=== PATIENT | male | born 1960 | race Caucasian/White ===

== ENCOUNTER 2018-12-13 11:22 | Inpatient (IN) | payer OTHER ==
[~2018-12-13] VITALS: Ht 185.4 cm; Wt 61.7 kg
[2018-12-13] MEDS ORDERED: IOHEXOL 350 MG/ML 100ML IJ ONE (12:15)
[2018-12-13 12:55] LABS: Basophils # (auto) 0 uL; Basophils % (auto) 0.4 % (0.0-2.0); Eosinophils # (auto) 0.2 uL; Eosinophils % (auto) 2.1 % (0.0-7.0); Hematocrit 45.3 % (41.0-53.0); Hemoglobin 14.9 g/dL (13.5-17.5); Lymphocytes # (auto) 1.7 uL; Lymphocytes % (auto) 17.8 % (10.0-50.0); Mean Corpuscular Hemoglobin 30.3 pg (28.0-32.0); Mean Corpuscular Hgb Conc. 32.9 g/dL (32.0-36.0); Mean Corpuscular Volume 92.4 fL (80.0-100.0); Monocytes % (auto) 10.8 % (0.0-12.0); Neutrophils # (auto) 6.5 uL; Neutrophils % (auto) 68.9 % (37.0-80.0); Nucleated Red Blood Cells % 0.1 %; Platelet Count (auto) 390 10^3/uL (140-450); Red Cell Distribution Width 15.2 % (11.8-14.3); White Blood Cell 9.4 10^3/uL (4.4-10.8)
[2018-12-13 13:06] LABS: Albumin 3.1 g/dL (3.4-5.0); BUN/Creatinine Ratio 23.1; Calcium 8.4 mg/dL (8.5-10.1); Potassium 4.7 mmol/L (3.5-5.1)
[2018-12-13 13:08] LABS: Bilirubin, Total 1.6 mg/dL (0.2-1.0); Total Protein 6.8 g/dL (6.4-8.2)
[2018-12-13] MEDS ORDERED: LORazepam 2MG/ML-1ML VIAL IV ONE (13:15)
[2018-12-13] MEDS ORDERED: FUROSEMIDE 40 MG/4 ML VIAL IV ONE (14:15)
[2018-12-13] MEDS ORDERED: ALBUTEROL SULF 2.5 MG/0.5ML(0.5%) NEB SOLN NEB PRN (14:45)
[2018-12-13] MEDS ORDERED: PROMETHAZINE HCL 25 MG/ML 1ML IV PRN (14:45)
[2018-12-13] MEDS ORDERED: LACTULOSE 20Gm/30ML SOLN PO PRN ×2 (14:45)
[2018-12-13] MEDS ORDERED: NITROGLYCERIN 0.4 MG SL TAB SL PRN (14:45)
[2018-12-13] MEDS ORDERED: MORPHINE SULFATE 4 MG/ML SYR/VIAL IV PRN (14:45)
--- NOTE | 2018-12-13 19:11 | NUR ---
PT CURRENTLY ON 2 L/M NC: HR 99, RR 18, SPO2 96% WITH CLEAR/DIM BS. PT SHOWS NO S/S OF ANY RESPIRATORY DISTRESS. INFORMED PT IF SOB TO CONTACT RESPIRATORY FOR BREATHING TX. WILL CONTINUE TO MONITOR.
[2018-12-13] MEDS: SODIUM CHLOR 0.9% PF (SALINE LOCK) 10ML VIAL/SYR IV SCH (21:56)
[2018-12-13] MEDS ORDERED: CARVEDILOL 3.125 MG TAB PO SCH (22:00)
[2018-12-13] MEDS ORDERED: FUROSEMIDE 40 MG/4 ML VIAL IV SCH (22:00)
[2018-12-13] MEDS ORDERED: ENALAPRIL MALEATE 2.5 MG TAB PO SCH ×2 (22:00)
[2018-12-13 22:32] VITALS: BP 135/99
[2018-12-14 03:37] LABS: Basophils # (auto) 0.1 uL; Basophils % (auto) 0.7 % (0.0-2.0); Eosinophils # (auto) 0.2 uL; Eosinophils % (auto) 2.7 % (0.0-7.0); Hemoglobin 14.7 g/dL (13.5-17.5); Lymphocytes # (auto) 1.8 uL; Lymphocytes % (auto) 21.2 % (10.0-50.0); Mean Corpuscular Hemoglobin 30.7 pg (28.0-32.0); Mean Corpuscular Hgb Conc. 33.4 g/dL (32.0-36.0); Mean Corpuscular Volume 92.1 fL (80.0-100.0); Neutrophils # (auto) 5.4 uL; Neutrophils % (auto) 63.4 % (37.0-80.0); Nucleated Red Blood Cells % 0.1 %; Platelet Count (auto) 355 10^3/uL (140-450); Red Blood Cells 4.77 10^6/uL (4.5-5.90); Red Cell Distribution Width 15.1 % (11.8-14.3); White Blood Cell 8.6 10^3/uL (4.4-10.8)
[2018-12-14 03:56] LABS: Albumin 2.9 g/dL (3.4-5.0); Calcium 8.6 mg/dL (8.5-10.1); Potassium 4.9 mmol/L (3.5-5.1)
[2018-12-14 03:59] LABS: Bilirubin, Total 1.4 mg/dL (0.2-1.0); Total Protein 6.1 g/dL (6.4-8.2)
[2018-12-14] MEDS: SODIUM CHLOR 0.9% PF (SALINE LOCK) 10ML VIAL/SYR IV SCH ×3 (06:07→22:58)
[2018-12-14 08:54] LABS: Alcohol, Urine < 3.0 mg/dL (0-5); Amphetamine Screen, Urine NEGATIVE (NEGATIVE); Barbiturate Scree,Urine NEGATIVE (NEGATIVE); Benzodiazephine Screen, Urine NEGATIVE (NEGATIVE); Cannabinoid Screen, Urine NEGATIVE (NEGATIVE); Cocaine Screen, Urine NEGATIVE (NEGATIVE); Opiate Scree,Urine NEGATIVE (NEGATIVE); Phencyclidine Screen, Urine NEGATIVE (NEGATIVE)
[2018-12-14] MEDS ORDERED: ENALAPRIL MALEATE 2.5 MG TAB PO SCH (10:00)
[2018-12-14] MEDS ORDERED: LISINOPRIL 20 MG TAB PO SCH (10:00)
[2018-12-14] MEDS ORDERED: CARVEDILOL 3.125 MG TAB PO ONE (10:45)
[2018-12-14] MEDS: PANTOPRAZOLE 40 MG TAB PO SCH (11:49)
[2018-12-14] MEDS: POTASSIUM CHL 20 Meq TABLET PO SCH (11:49)
[2018-12-14] MEDS: LEVOFLOXACIN 500MG 100 ML IV SCH (11:49)
[2018-12-14] MEDS: ASPirin 81 mg TAB PO SCH (11:49)
[2018-12-14] MEDS: NITROGLYCERIN 0.2MG/HR TOPICAL PATCH TD SCH (11:50)
[2018-12-14] MEDS: ENOXAPARIN SOD 40 MG/0.4 ML SYRINGE SC SCH (11:51)
[2018-12-14] MEDS: LORazepam 0.5 MG TAB PO PRN ×2 (13:34→23:00)
[2018-12-14] MEDS ORDERED: chlordiazePOXIDE HCL 25 MG CAP PO PRN (15:45)
[2018-12-14] MEDS ORDERED: THIAMINE HCL 100 MG TAB PO ONE (15:45)
[2018-12-14] MEDS: chlordiazePOXIDE HCL 5 MG CAP PO SCH ×2 (18:00→22:59)
[2018-12-14] MEDS: FUROSEMIDE 40 MG/4 ML VIAL IV SCH (18:09)
--- NOTE | 2018-12-14 19:04 | NUR ---
PT SEEN SLEEPING IN BED ON 2L NC, SPO2 96%, RR 18, BS CLEAR, NO RESP DISTRESS NOTED. PRN NEB TX NOT INDICATED AT THIS TIME.
[2018-12-14 22:10] VITALS: BP 129/77
--- NOTE | 2018-12-14 22:10 | NUR ---
[facility] to [facility] to [facility] via gurney on campus monitor, and portable 02. Patient transferred to bed, connected to unit monitoring and oxygen, and weighed by bed scale. Patient oriented to Johana miranda RN, unit, room, bed, and unit policies regarding patient care and visiting hours. All questions and concerns addressed, patient verbalized understanding. NOTE: ALERT AND ORIENTED X4. NO SOB, DISTRESS OR PAIN NOTED. 2L N/C. CLEAR RIGHT AC 20G SL VS STABLE. NO OPEN WOUND
[2018-12-14] MEDS: SACUBITRIL-VALSARTAN 24mg/26mg TAB PO SCH (22:59)
[2018-12-14] MEDS: CARVEDILOL 3.125 MG TAB PO SCH (22:59)
--- NOTE | 2018-12-14 23:00 | NUR ---
LEFT THE BEDSIDE FOR THE NIGHT
[2018-12-15] VITALS: BP 113/79
[2018-12-15] MEDS: TEMAZEPAM 15 MG CAP PO PRN ×2 (01:00→22:13)
--- NOTE | 2018-12-15 03:00 | NUR ---
ROUNDS PATIENT QUIETLY LAYING IN BED SLEEPING. NO SOB, DISTRESS OR PAIN NOTED. VS STABLE. WILL CONTINUE TO CLOSELY MONITOR.
[2018-12-15 04:00] VITALS: BP 118/84
[2018-12-15] MEDS: chlordiazePOXIDE HCL 5 MG CAP PO SCH ×2 (05:37→12:00)
[2018-12-15] MEDS: SODIUM CHLOR 0.9% PF (SALINE LOCK) 10ML VIAL/SYR IV SCH ×3 (05:38→22:07)
[2018-12-15] MEDS: FUROSEMIDE 40 MG/4 ML VIAL IV SCH ×2 (06:33→19:43)
--- NOTE | 2018-12-15 06:45 | NUR ---
END OF SHIFT PATIENT IS QUIETLY LAYING IN BED SLEEPING. NO SOB, DISTRESS OR PAIN NOTED. ON 4L N/C. WILL GIVE REPORT AND ENDORSE CARE TO THE DAY SHIFT RN.
--- NOTE | 2018-12-15 07:30 | NUR ---
REPORT RECEIVED FROM MELIA RNNANDO. PT RESTING IN BED WITH EYES CLOSED AND VSS. NO DISTRESS NOTED. CONTINUE TO MONITOR.
[2018-12-15 08:00] VITALS: BP 119/82
--- NOTE | 2018-12-15 08:10 | NUR ---
ASSESSMENT PT AWAKE AND A/O X4. ABLE TO FOLLOW SIMPLE COMMANDS AND MOVES SELF IN BED. LUNGS CLEAR AND O2 AT 4 L/M VIA NC WITH O2 SAT OF 98%. TELE SR 95 WITH PVC, AND ELEVATED ST IN LEAD V. PALPABLE PULSES TO ALL EXTREMITIES. NO EDEMA NOTED. ABD SOFT WITH + BOWEL SOUNDS. LAST BM WAS 12/14. USED URINAL TO VOID QS CLEAR YELLOW URINE. DENIES ANY PAIN OR SOB. SALINE LOCK TO THE RAC, #20, SITE BENIGN. CONTINUE TO MONITOR,
[2018-12-15 08:29] LABS: Albumin 2.5 g/dL (3.4-5.0); Calcium 8.1 mg/dL (8.5-10.1); Potassium 4.3 mmol/L (3.5-5.1)
--- NOTE | 2018-12-15 08:30 | NUR ---
CLARIFIED WITH DR LOPEZ , BY PHONE, THAT PT HAVING LHC AND [facility] ON SUNDAY. ORDER FOR NPO SHOULD BE FOR NPO AFTER MIDNIGHT SUNDAY NIGHT. BREAKFAST TRAY ORDERED. PT NOTIFIED.
[2018-12-15 08:36] LABS: BUN/Creatinine Ratio 30.3; Bilirubin, Total 0.9 mg/dL (0.2-1.0); Total Protein 5.9 g/dL (6.4-8.2)
--- NOTE | 2018-12-15 10:00 | NUR ---
RT NOTE: WENT TO PTS ROOM TO ASSESS FOR PRN BREATHING TX, PT SLEEPING, PT IS ON 3L NC, SPO2 98% HR 100, NO S/S OF SOB. WILL CONTINUE TO MONITOR PT.
[2018-12-15] MEDS: LEVOFLOXACIN 500MG 100 ML IV SCH (10:51)
[2018-12-15] MEDS: ASPirin 81 mg TAB PO SCH (10:51)
[2018-12-15] MEDS: ENOXAPARIN SOD 40 MG/0.4 ML SYRINGE SC SCH (10:51)
[2018-12-15] MEDS: POTASSIUM CHL 20 Meq TABLET PO SCH (10:51)
[2018-12-15] MEDS: PANTOPRAZOLE 40 MG TAB PO SCH (10:52)
[2018-12-15] MEDS: CARVEDILOL 3.125 MG TAB PO SCH ×2 (11:18→22:11)
[2018-12-15] MEDS: NITROGLYCERIN 0.2MG/HR TOPICAL PATCH TD SCH (11:18)
[2018-12-15] MEDS: SACUBITRIL-VALSARTAN 24mg/26mg TAB PO SCH ×2 (11:18→22:10)
[2018-12-15] MEDS: THIAMINE HCL 100 MG TAB PO SCH (11:20)
[2018-12-15 12:30] VITALS: BP 107/69
--- NOTE | 2018-12-15 12:30 | NUR ---
PT RESTING COMFORTABLY, SERVED HIM HIS LUNCH.
--- NOTE | 2018-12-15 12:50 | NUR ---
MD VISIT PT SEEN AND EXAMINED BY DR AGUILAR. PT HAD ANOTHER MUSCLE CRAMP IN HIS LEGS. DR AGUILAR ORDERED MAG SULFATE 1 GM IVPB AND TO GIVE PREVIOUSLY ORDERED DOSE OF PO ATIVAN FOR ANXIETY. PT ANXIOUS ABOUT TOMORROWS LEFT AND RIGHT HEART CATH. MEDS ORDERED AND ADMINISTERED.
[2018-12-15] MEDS ORDERED: MAGNESIUM SULFATE 1GM/100ML 100 ML IV ONE ×2 (12:57→13:00)
[2018-12-15] MEDS: LORazepam 0.5 MG TAB PO PRN (13:10)
--- NOTE | 2018-12-15 13:30 | NUR ---
PT SLEEPING WITH RESPIRATIONS EVEN AND UNLABORED. VSS. AT THE BEDSIDE.
--- NOTE | 2018-12-15 15:45 | NUR ---
V TACH/MD PT WITH 3 BEATS OF V TACH, PT SLEEPING AND VSS. PAGED AND SPOKE WITH DR LOPEZ NOTIFYING HIM OF THIS. ORDER RECEIVED FOR MAGNESIUM 400 MG PO BID.
[2018-12-15 17:00] VITALS: BP 107/70
--- NOTE | 2018-12-15 17:32 | NUR ---
V TACH PT WITH 4 BEATS OF V TACH. PT ASLEEP WITH VSS AND BP OF 110/71. CALLED AND NOTIFIED DR AGUILAR. ORDER RECEIVED TO GET A STAT POTASSIUM LEVEL. ORDER PLACED AND LAB CALLED. AT BEDSIDE AND MADE AWARE.
--- NOTE | 2018-12-15 17:49 | NUR ---
ANOTHER 4 BEATS OF V TACH. HOLDING 1800 DOSE OF LASIX UNTIL K LEVEL RESULTED.
--- NOTE | 2018-12-15 18:32 | NUR ---
STAT K LEVEL ALREADY DRAWN AND WAITING FOR RESULT. HOLDING LASIX DOSE UNTIL K LEVEL BACK. CONTINUE TO MONITOR. PT AWAKE , EITH NO PAIN, AND SERVED DINNER.
--- NOTE | 2018-12-15 18:59 | NUR ---
Respiratory note: PT ASSESSED FOR PRN MED NEB TX. NO RESPIRATORY DISTRESS NOTED. HR 108 RR 16 SP02 97% ON 2 L, BS CLEAR/DIMINISHED. PT AWARE TO HAVE RN PAGE RT IF MED NEB TX IS NEEDED, WILL CONTINUE TO MONITOR.
--- NOTE | 2018-12-15 19:30 | NUR ---
REPORT GIVEN TO KRISTEN CÁRDENAS RN. PT WITH Linnea TELLORAW AND IS 4.6. ADMINISTERED LASIX 40 MG IV.
[2018-12-15 20:00] VITALS: BP 124/63
--- NOTE | 2018-12-15 20:00 | NUR ---
Opening Shift Note Assumed care of patient, awake and alert, OOB to BSC by self for elimination and back, stable gait, no lightheadedness, no incident. Breathing even and nonlabored on O2NC 2 LPM, No S/S of distress/SOB. Denies pain and N/V. Saline lock 20 G at right AC, CDI site, flushed well, reported slightly pain when flush, will continue monitoring. Voided to urinal x3, clear pale yellowish. Bed in low position, call light within reach, fall and safety precaution in place, all alarms are audible. Instructed on POC and to call for assist PRN, will continue to monitor for changes Q1hr and PRN.
--- NOTE | 2018-12-15 20:10 | NUR ---
Consent obtained Pt's at bedside. Discussed POC and procedure with Pt and Pt's ; Angelita. Pt stated that Dr. Calderon and Pt already discussed about the procedure tomorrow. Pt still feel anxious about the procedure. Education given regarding Pre-op, Intra-op and Post-op of Heart cath. All questions and concerns answered to Pt and the . Instructed POC for the night about procedure preparing, Pt acknowledged. Consents obtained at this time. Pt's yellow colored ring removed and gave to the .
--- NOTE | 2018-12-15 21:00 | NUR ---
Urination Since Lasix given as order, Pt voided multiple times, clear pale yellowish urine, total now 1170ml. Pt wiped clean by self, wet wipes and trash bag prepared at bedside. Continue care.
--- NOTE | 2018-12-15 22:00 | NUR ---
Elimination Pt OOB to BSC for Elimination. Pt passed a large amount of semi-soft yellowish stool. Pt wiped clean by self, Pt back to bed without incident. Pt tolerated well, v/s stable, no ectopies.
[2018-12-15] MEDS: MAGNESIUM OXIDE 400 MG TAB PO SCH (22:11)
--- NOTE | 2018-12-15 23:10 | NUR ---
Muscle Cramping Pt moaning, stated Pt having muscle cramping on posterior of right thigh, Pt have to get OOB/ have short steps and stretching the muscle by bedside in order to ease the pain and cramping. Assisted Pt with stretching and safety precaution. After 10mins of stretching, Pt feel better and able to lie on the bed. Continue care and monitoring.
[2018-12-16] VITALS: BP 139/58
--- NOTE | 2018-12-16 01:00 | NUR ---
Condition update Pt v/s, EKG and condition stable, able to sleep. Continue monitoring and care.
[2018-12-16 03:29] LABS: Urine Bacteria NONE SEEN /hpf (None Seen); Urine Blood Negative /uL (Negative); Urine Mucus FEW (None Seen); Urine Specific Gravity 1.013 (1.001-1.035); Urine WBC <1 /hpf (0 - 3)
--- NOTE | 2018-12-16 04:30 | NUR ---
IV insertion IV access obtained, via clean sterile technique by inserting 20 gauge catheter at left after 1 attempt for left and right heart cath procedure. IV secured properly. No trauma to site. Patient tolerated well. 04.45am IV at left FA is leaking a small amount of blood, D/S and covered with new Tegaderm. Continue care.
--- NOTE | 2018-12-16 05:00 | NUR ---
Patient bathe/linen change Patient given complete bath with CHG wipes. Skin integrity assessed for any changes, skin intact. Complete linens changed. Mouth care done, partial upper denture removed and cleaned, put in the denture cup at bedside. Patient repositioned for comfort.
[2018-12-16 05:31] LABS: Basophils # (auto) 0.1 uL; Basophils % (auto) 0.5 % (0.0-2.0); Eosinophils # (auto) 0.4 uL; Eosinophils % (auto) 3.8 % (0.0-7.0); Hematocrit 46.5 % (41.0-53.0); Hemoglobin 15.6 g/dL (13.5-17.5); Lymphocytes # (auto) 1.9 uL; Lymphocytes % (auto) 18.3 % (10.0-50.0); Mean Corpuscular Hemoglobin 30.6 pg (28.0-32.0); Mean Corpuscular Hgb Conc. 33.6 g/dL (32.0-36.0); Mean Corpuscular Volume 91.1 fL (80.0-100.0); Monocytes # (auto) 1.3 uL; Monocytes % (auto) 13.2 % (0.0-12.0); Neutrophils # (auto) 6.5 uL; Neutrophils % (auto) 64.2 % (37.0-80.0); Nucleated Red Blood Cells % 0.1 %; Platelet Count (auto) 339 10^3/uL (140-450); Red Cell Distribution Width 14.4 % (11.8-14.3); White Blood Cell 10.1 10^3/uL (4.4-10.8)
[2018-12-16 05:49] LABS: INR 1.19 (0.9-1.15); Partial Thromboplastin Time 25.9 sec (23.78-33.04); Prothrombin Time 12.6 sec (9.27-12.13)
[2018-12-16 05:51] LABS: Potassium 4.1 mmol/L (3.5-5.1)
[2018-12-16 06:00] LABS: Albumin 2.5 g/dL (3.4-5.0); BUN/Creatinine Ratio 23.6; Calcium 8.1 mg/dL (8.5-10.1); Total Protein 6.2 g/dL (6.4-8.2)
[2018-12-16] MEDS: FUROSEMIDE 40 MG/4 ML VIAL IV SCH (06:51)
[2018-12-16] MEDS: SODIUM CHLOR 0.9% PF (SALINE LOCK) 10ML VIAL/SYR IV SCH ×3 (06:51→22:13)
[2018-12-16 08:00] VITALS: BP 138/83
--- NOTE | 2018-12-16 09:22 | NUR ---
FAMILY AT BEDSIDE
[2018-12-16] MEDS: ENOXAPARIN SOD 40 MG/0.4 ML SYRINGE SC SCH (10:00)
[2018-12-16 10:09] LABS: Free T3 2.54 pg/mL (2.3-4.2); Free T4 (Free Thyroxine) 1.26 ng/dL (0.89-1.76)
[2018-12-16] MEDS: LEVOFLOXACIN 500MG 100 ML IV SCH (10:12)
[2018-12-16] MEDS: NITROGLYCERIN 0.2MG/HR TOPICAL PATCH TD SCH (10:16)
[2018-12-16] MEDS: SACUBITRIL-VALSARTAN 24mg/26mg TAB PO SCH ×2 (10:17→22:13)
[2018-12-16] MEDS: CARVEDILOL 3.125 MG TAB PO SCH ×2 (10:18→22:12)
--- NOTE | 2018-12-16 10:47 | NUR ---
RT NOTE PT DECLINED NEED FOR TX AT THIS TIME. NO SIGNS OF RESPIRATORY DISTRESS NOTED. LUNG SOUNDS CLEAR/DIMINISHED T/O. ON 2L NC. SPO2 97% HR 106, RR 14, AT BEDSIDE. PT AWARE TO HAVE RN PAGE FOR RESPIRATORY IF NEED FOR TX ARISES. WILL CONTINUE TO MONITOR. RT STUDENT HUBERT AVILA
--- NOTE | 2018-12-16 11:29 | NUR ---
HOSPITALIST AT BEDSIDE DR GARZA UPDATED ON PATIENT'S STATUS, HISTORY RUNS OF V-TACH REPORTED BY GINGER FARMER RN, LEG CRAMPING AND LIVER US RESULTS. DR GARZA DISCUSSED HISTORY OF ALCOHOL AND DRUG USE WITH PATIENT AND FAMILY WELL PLAN OF CARE.
[2018-12-16 11:56] LABS: Hepatitis B Surface Antibody Negative
[2018-12-16] MEDS ORDERED: ANGIOMAX 250 MG VIAL IV ONE (12:08)
[2018-12-16] MEDS ORDERED: SODIUM CHL 0.9% 0 ML ONE (12:09)
[2018-12-16 12:12] VITALS: BP 111/75
[2018-12-16] MEDS ORDERED: LIDOCAINE 2%HCL (LOCAL ANESTH.) INJ 20ML MDV ONE (12:29)
[2018-12-16] MEDS ORDERED: IOHEXOL 350 MG/ML 100ML IJ ONE ×2 (12:29→12:38)
--- NOTE | 2018-12-16 12:30 | NUR ---
PATIENT OFF FLOOR TO MAGISTERIAL DISTRICT JUDGE FOR SCHEDULED PROCEDURE. PATIENT ALERT AND ORIENTED X4, VSS AND DOCUMENTED, NO DISTRESS NOTED, RESPIRATIONS EVEN AND UNLABORED, PATIENT ON 2 LITERS OXYGEN VIA NASAL CANNULA. PATIENT ACCOMPANIED BY SPOUSE. WILL CONTINUE TO MONITOR UPON RETURN TO FLOOR.
[2018-12-16] MEDS: MIDAZOLAM HCL 1MG/1ML-2 ML VIAL ONE (12:33)
[2018-12-16 12:34] LABS: Hepatitis A Total Antibody Negative
[2018-12-16] MEDS: fentaNYL CITRATE 100 MCG/2 ML VL ONE (12:34)
[2018-12-16] MEDS ORDERED: DOPamine 1600MCG/ML D5W 0 ML IV ONE (13:03)
[2018-12-16] MEDS ORDERED: EPINEPHrine HCL 1 MG/10 ML SYRG ONE (13:05)
[2018-12-16] MEDS ORDERED: ATROPINE SULFATE 1 MG/1 ML VIAL ONE (13:05)
[2018-12-16 13:29] LABS: Hepatitis B Core Total AB Negative; Hepatitis C Antibody Negative (Negative)
[2018-12-16 13:30] LABS: Hepatitis B Surface Antigen Negative (Negative)
--- NOTE | 2018-12-16 13:55 | NUR ---
PATIENT RETURN TO FLOOR VIA GURNEY AND CONNECTED TO BEDSIDE MONITOR AND OXYGEN. PATIENT ALERT AND ORIENTED X4, NO DISTRESS NOTED, RESPIRATIONS EVEN AND UNLABORED. PATIENT DENIES PAIN OR DISCOMFORT AT THIS TIME. RIGHT SIDE GROIN ACCESS SITE IS SOFT TO TOUCH, NO REDNESS, SWELLING OR DRAINAGE NOTED, DRESSING IS CLEAN, DRY AND INTACT. PATIENT INSTRUCTED TO REMAIN LYING FLAT UNTIL AFTER 1530 AND EDUCATED ON REASONS FOR REMAINING LEG STRAIGHT TO DECREASE RISK OF BLEEDING, PATIENT VERBALIZED UNDERSTANDING. FAMILY AT BEDSIDE. FALL PRECAUTIONS IN PLACE.
--- NOTE | 2018-12-16 14:21 | NUR ---
EDUCATION PATIENT REQUESTING WALTERS SALAD, CHICKEN SANDWICH, BOTSWANAN FRIES AND CHOCOLATE SHAKE. THIS NURSE DISCUSSED CARDIAC DIET AND FOOD CHOICES WITH PATIENT AND SPOUSE, ALL VERBALIZED UNDERSTANDING. WILL CONTINUE ONGOING EDUCATION. Addendum: 12/16/18 at 1434 by Alicia Cho RN PRINTED HEART HEALTHY AND LOW FAT/CHOLESTEROL DIET INFORMATION GIVEN TO PATIENT.
--- NOTE | 2018-12-16 14:54 | NUR ---
CONTACT [facility] AT , SPOKE WITH RANULFO WHO REQUESTED H&P, PROGRESS NOTES, INSURANCE/PT INFORMATION AND MD ORDERS TO BE FAXED TO . RANULFO ALSO PROVIDED THIS NURSE WITH NAME OF REGIONAL COLD PATCHER: PEDRO VINES . INFORMATION WILL BE FAXED TO [facility].
--- NOTE | 2018-12-16 15:29 | NUR ---
[facility] INFORMATION FAXED TO [facility] AND VERIFIED BY CHATO, CHARGE NURSE.
[2018-12-16] MEDS: PANTOPRAZOLE 40 MG TAB PO SCH (16:00)
[2018-12-16] MEDS: POTASSIUM CHL 20 Meq TABLET PO SCH (16:00)
[2018-12-16] MEDS: ASPirin 81 mg TAB PO SCH (16:00)
[2018-12-16] MEDS: MAGNESIUM OXIDE 400 MG TAB PO SCH ×2 (16:00→22:13)
[2018-12-16] MEDS: THIAMINE HCL 100 MG TAB PO SCH (16:01)
[2018-12-16 16:23] VITALS: BP 115/81
--- NOTE | 2018-12-16 18:19 | NUR ---
SPOKE WITH DR LOPEZ NOTIFIED OF BP 90/49 AND LASIX IV ADMINISTRATION. ORDERS TO DISCONTINUE LASIX IV AND CHANGE TO LASIX 40 PO DAILY. ORDERS CARRIED OUT.
--- NOTE | 2018-12-16 18:50 | NUR ---
RT NOTE: PT IN BED ON 2LPM NC WITH NO DISTRESS NOTED. SPO2 96%, HR 103, RR 18. BS DECREASED. PT NOTIFIED OF PRN MED NEB TX AND TO HAVE RT PAGED IF SOB OCCURS.
--- NOTE | 2018-12-16 18:55 | NUR ---
SS consult regarding assistance with disability insurance. Actively listened to spouses verbalizations regarding recent diagnosis of patient and her concerns re: his condition and loss of income. Provided emotional support and reassurance. Provided information and education re: disability insurance and the process. Referred spouse to [employer].gov/benefits website and walked her through process of online application. Spouse verbalized understanding. Will followup as appropriate and provide interventions as needed. Addendum: 12/18/18 at 1859 by GILSON CHASE Amended: Links added.
[2018-12-16 20:00] VITALS: BP 117/62
[2018-12-16 21:32] VITALS: BP 117/62
[2018-12-16] MEDS ORDERED: SALINE 0.65 % NASAL SPRAY 45ML BOTTLE EACHNOSTRI PRN (22:00)
[2018-12-17] VITALS: BP 105/67
[2018-12-17 04:00] VITALS: BP 108/65
[2018-12-17] MEDS: SODIUM CHLOR 0.9% PF (SALINE LOCK) 10ML VIAL/SYR IV SCH ×3 (06:00→21:42)
[2018-12-17 08:00] VITALS: BP 132/69
--- NOTE | 2018-12-17 08:10 | NUR ---
PATIENT AOX4, CONNECTED TO BEDSIDE CARDIAC MONITORS, NO S/S OF DISTRESS NOTED, ON ROOM AIR. BREAKFAST TRAY GIVEN. PLAN OF CARE DISCUSSED. BED IN LOW POSITION, CALL LIGHT WITHIN REACH AND EDUCATED TO CALL IF NEEDED. WITHIN VIEW OF NURSES STATION. WILL CONTINUE TO MONITOR
--- NOTE | 2018-12-17 09:10 | NUR ---
PATIENTS AT BEDSIDE UPDATED ON STATUS THROUGHOUT THE NIGHT AND PLAN OF CARE. ADDRESSED CONCERNS.
[2018-12-17] MEDS: LEVOFLOXACIN 500MG 100 ML IV SCH (10:05)
--- NOTE | 2018-12-17 10:20 | NUR ---
IV removal IV DC'd with clean sterile technique, catheter fully intact. Pressure dressing applied to site. Patient tolerated well. NOTE: RIGHT AC
[2018-12-17] MEDS: POTASSIUM CHL 20 Meq TABLET PO SCH (10:30)
[2018-12-17] MEDS: FUROSEMIDE 20 MG TAB PO SCH (10:30)
[2018-12-17] MEDS: MAGNESIUM OXIDE 400 MG TAB PO SCH ×2 (10:30→21:32)
[2018-12-17] MEDS: PANTOPRAZOLE 40 MG TAB PO SCH (10:30)
[2018-12-17] MEDS: CARVEDILOL 3.125 MG TAB PO SCH ×2 (10:30→21:32)
[2018-12-17] MEDS: THIAMINE HCL 100 MG TAB PO SCH (10:30)
[2018-12-17] MEDS: ASPirin 81 mg TAB PO SCH (10:30)
[2018-12-17] MEDS: NITROGLYCERIN 0.2MG/HR TOPICAL PATCH TD SCH (10:30)
[2018-12-17] MEDS: SACUBITRIL-VALSARTAN 24mg/26mg TAB PO SCH ×2 (10:30→21:32)
[2018-12-17 10:57] LABS: Basophils # (auto) 0 uL; Basophils % (auto) 0.4 % (0.0-2.0); Eosinophils # (auto) 0.3 uL; Eosinophils % (auto) 2.8 % (0.0-7.0); Hematocrit 48.8 % (41.0-53.0); Hemoglobin 15.9 g/dL (13.5-17.5); Lymphocytes # (auto) 1.4 uL; Lymphocytes % (auto) 14.2 % (10.0-50.0); Mean Corpuscular Hemoglobin 30.2 pg (28.0-32.0); Mean Corpuscular Hgb Conc. 32.5 g/dL (32.0-36.0); Mean Corpuscular Volume 92.8 fL (80.0-100.0); Monocytes # (auto) 1.3 uL; Monocytes % (auto) 12.5 % (0.0-12.0); Neutrophils % (auto) 70.1 % (37.0-80.0); Nucleated Red Blood Cells % 0.1 %; Platelet Count (auto) 335 10^3/uL (140-450); Red Blood Cells 5.26 10^6/uL (4.5-5.90); Red Cell Distribution Width 14.9 % (11.8-14.3)
[2018-12-17 11:17] LABS: Albumin 2.4 g/dL (3.4-5.0); Calcium 8.4 mg/dL (8.5-10.1); Magnesium 2.4 mg/dL (1.6-2.6); Potassium 4.9 mmol/L (3.5-5.1)
--- NOTE | 2018-12-17 11:20 | NUR ---
DR GARZA AT BEDSIDE NEW ORDERS PLACED
[2018-12-17 11:23] LABS: BUN/Creatinine Ratio 22.8; Bilirubin, Total 0.9 mg/dL (0.2-1.0); Total Protein 6.2 g/dL (6.4-8.2)
[2018-12-17] MEDS: ENOXAPARIN SOD 40 MG/0.4 ML SYRINGE SC SCH (11:41)
--- NOTE | 2018-12-17 12:07 | NUR ---
Nutrition Assessment Notes Please see attached link for complete assessment Est. Needs BW [id number] kcal (25-30 kcal/kgBW), 78-93 gms pro (1.0-1.2 gms/kgBW). Will continue to monitor pertinent labs and reassess nutrient need prn Addendum: 12/17/18 at [address] Amended: Links added.
--- NOTE | 2018-12-17 13:50 | NUR ---
DR LOPEZ AT BEDSIDE NO NEW ORDERS. STATES TO SEE IF CASE MANAGEMENT CAN GET [facility]ST THAT [facility] WILL COVER APPROVED. WILL NOTIFY MARYAM
--- NOTE | 2018-12-17 14:22 | NUR ---
BED ASSIGNMENT 274B- REPORT GIVEN TO JUAN CHANDLER PATIENT CONNECTED TO PORTABLE TELE BOX AND TRANSPORTED VIA WHEELCHAIR TO NEW ROOM. AT BEDSIDE DURING TRANSFER. TRANSFERRED WITH ALL BELONGINGS. VITALS STABLE AT TIME OF TRANSFER
--- NOTE | 2018-12-17 14:33 | NUR ---
Telemetry admit from [facility] admitted to Telemetry unit after SBAR received GERALDINE Angel. Patient oriented to Tara Pagan, primary RN, unit, room, bed, and unit policies regarding patient care and visiting hours discussed with patient and . Patient now on continuous telemetry monitoring, tele box #HC1 and telemetry reading on arrival to unit is ST 101. Patient on 2 LPM/NC, o2 saturation 94%. No signs of SOB/Distress noted. Safety precautions in place including bed set to lowest position/locked, bedside rails up x2, call light with in reach. Instructed patient to call for assistance. Patient verbalized understanding. Will continue to monitor q 1hr and prn.
[2018-12-17 14:50] VITALS: BP 115/42
[2018-12-17 17:00] VITALS: BP 97/59
--- NOTE | 2018-12-17 17:32 | NUR ---
BOX SHOOK PATCHER TRIED TO RECALL NEPHROLOGY CONSULTATION, PHONE IS A NONWORKING NUMBER. BERNA AND FERNANDO FROM [facility] WERE UNSUCCESSFUL WELL. Addendum: 12/17/18 at 1735 by Tara Pagan RN PHONE NUMBER [phone]
--- NOTE | 2018-12-17 19:13 | NUR ---
ENDORSED CARE TO GERALDINE RIVERA.
--- NOTE | 2018-12-17 19:55 | NUR ---
DR. RUSSELL CALLED AND PLACED ORDERS FOR STRICT I+O'S; KIDNEY US; URINE: SODIUM, CREATININE, AND PROTEIN. URINE COLLECTED AND SENT TO LAB; KIDNEY ULTRASOUND WAS DONE ON 12/14; AND STRICT I+O'S NOW BEING ENFORCED AND COMMUNICATE TO PATIENT AND SUSTAINABILITY COACH. URINAL AT BEDSIDE AND PATIENT INSTRUCTED NOT TO EMPTY ON HIS OWN AND PO CONSUMPTION IS TO BE MEASURED.
[2018-12-17 20:50] LABS: Protein, Urine 12.7 mg/dL (0.0-11.9)
[2018-12-17] MEDS: TEMAZEPAM 15 MG CAP PO PRN (21:32)
[2018-12-17] MEDS: traMADol HCL 50 MG TAB PO PRN (21:32)
--- NOTE | 2018-12-17 21:53 | NUR ---
[address] TALAVERA LEAK HUNTER FOR DR JESSICA MENDOZA.
--- NOTE | 2018-12-17 21:57 | NUR ---
DR. TALAVERA STATES HE'S NOT TAKING CALLS FOR DR. LOPEZ. DR. LOPEZ PAGED.
[2018-12-17 22:00] VITALS: BP 105/67
--- NOTE | 2018-12-17 22:18 | NUR ---
DR. LOPEZ INFORMED OF PATIENT'S EPISODE OF VTACH. SEE NEW ORDERS
[2018-12-17] MEDS ORDERED: AMIODARONE HCL 200 MG TAB PO ONE (22:30)
[2018-12-17 23:04] LABS: Albumin 2.4 g/dL (3.4-5.0); BUN/Creatinine Ratio 25.6; Calcium 7.8 mg/dL (8.5-10.1); Magnesium 2.3 mg/dL (1.6-2.6); Potassium 4.9 mmol/L (3.5-5.1)
[2018-12-17 23:17] LABS: Bilirubin, Total 0.5 mg/dL (0.2-1.0)
[2018-12-18 05:00] VITALS: BP 111/78
[2018-12-18] MEDS: SODIUM CHLOR 0.9% PF (SALINE LOCK) 10ML VIAL/SYR IV SCH ×3 (06:00→21:55)
--- NOTE | 2018-12-18 07:25 | NUR ---
OPENING NOTE ASSUMED CARE OF PATIENT. PT IS LAYING ON BED, HOB LOW-FOWLERS. A&O X4. ON ROOM AIR, O2 SATURATION 96%. NO SIGNS OF SOB/DISTRESS. TELE #1, HR 99. SAFETY PRECAUTIONS IN PLACE INCLUDING BED SET TO LOWEST POSITION/LOCKED. BEDSIDE RAILS UP X2. CALL LIGHT WITHIN REACH. INSTRUCTED PT TO CALL FOR ASSISTANCE. DISCUSSED POC WITH PT. WILL CONTINUE TO MONITOR Q 1HR AND PRN.
[2018-12-18 09:00] VITALS: BP 110/73
[2018-12-18] MEDS: NITROGLYCERIN 0.2MG/HR TOPICAL PATCH TD SCH (10:00)
[2018-12-18] MEDS: ENOXAPARIN SOD 40 MG/0.4 ML SYRINGE SC SCH (10:00)
[2018-12-18] MEDS: LEVOFLOXACIN 500MG 100 ML IV SCH (10:33)
[2018-12-18] MEDS: ASPirin 81 mg TAB PO SCH (10:33)
[2018-12-18] MEDS: POTASSIUM CHL 20 Meq TABLET PO SCH (10:34)
[2018-12-18] MEDS: MAGNESIUM OXIDE 400 MG TAB PO SCH ×2 (10:34→21:56)
[2018-12-18] MEDS: AMIODARONE HCL 200 MG TAB PO SCH ×2 (10:34→21:56)
[2018-12-18] MEDS: PANTOPRAZOLE 40 MG TAB PO SCH (10:34)
[2018-12-18] MEDS: THIAMINE HCL 100 MG TAB PO SCH (10:34)
[2018-12-18] MEDS: FUROSEMIDE 20 MG TAB PO SCH (10:35)
[2018-12-18] MEDS: CARVEDILOL 3.125 MG TAB PO SCH ×2 (10:36→21:56)
[2018-12-18] MEDS: LORazepam 0.5 MG TAB PO PRN (10:48)
[2018-12-18] MEDS: SACUBITRIL-VALSARTAN 24mg/26mg TAB PO SCH ×2 (10:48→21:55)
--- NOTE | 2018-12-18 11:30 | NUR ---
DR. GARZA AT BEDSIDE. DISCUSSED POC WITH PATIENT. PATIENT AND WERE INFORMED PATIENT NEEDS TO BE TRANSFERRED TO [place] TO RECEIVE [facility]. PATIENT SATED "I DO NOT WANT TO GO TO [place], I DON'T WANT TO GO IN THE AMBULANCE. I DO NOT WANT TO GO." PATIENT WAS EDUCATED ON THE RISK AND BENEFITS OF NOT HAVING/HAVING THE [facility]. PATIENT IS STILL REFUSING TRANSFER. PATIENT AND WILL HAVE A DISCUSSION AND WILL INFORM THIS NURSE OF THIER DECISION. CONTINUING EDUCATION ON [facility] IN PLACE.
--- NOTE | 2018-12-18 12:09 | NUR ---
PATIENT AGREED TO TRANSFER TO [place]. WILL INFORM [facility] CASE MANAGEMENT.
--- NOTE | 2018-12-18 12:17 | NUR ---
LEFT A MESSAGE TO [facility] CASE MANAGEMENT, INFORMING HER PATIENT HAS AGREED TO TRANSFER TO [facility].
--- NOTE | 2018-12-18 12:18 | NUR ---
RE:[facility] PEDOR CALDERON FROM [facility] IS AT BEDSIDE.
[2018-12-18 12:49] VITALS: BP 100/68
--- NOTE | 2018-12-18 12:51 | NUR ---
PAGED TO PUT IN HIS D/C AND TRANSFER ORDER
--- NOTE | 2018-12-18 14:35 | NUR ---
Ralph instructed to send me ekg strips pertaining to the v tach incident pt had last noc. [facility] is requesting the strips.
--- NOTE | 2018-12-18 14:38 | NUR ---
SPOKE TO DR. LOPEZ AT NURSES STATION. PER DR. LOPEZ PATIENT IS CLEARED FOR DISCHARGE. WILL INFORM [facility] AND DR. GARZA.
--- NOTE | 2018-12-18 14:48 | NUR ---
SPOKE TO DR. GARZA VIA PHONE. PER DR. GARZA HE IS REFUSING TO DISCHARGE PATIENT. PATIENT HAD A 17 BEAT V-TAC LAST NIGHT. PATIENT EF 10-15%
--- NOTE | 2018-12-18 14:56 | NUR ---
FAXED TELE STRIP TO [facility]. TELE STRIP PLACED IN CHART. Addendum: 12/18/18 at 1458 by Tara Pagan RN FAX NUMBER [phone]
--- NOTE | 2018-12-18 15:39 | NUR ---
IS REFUSING TO D/C PT AND WANTS HIM TRANSFERRED TO [place]. PT HAD EPISODE OF V TACH LAST NOC AND HAS EF OF 20%
--- NOTE | 2018-12-18 15:42 | NUR ---
IS REFUSING TO D/C PT AND WANTS PT TRANSFERRED TO [place]. PT HAD EPISODE OF V TACH LAST NOC AND HAS EF OF 15%. WANTS PT TRANSFERRED TO [place]
--- NOTE | 2018-12-18 15:43 | NUR ---
TRANSFER SUMMARY, TRANSFER ORDER AND MY NOTE STATING PT'S NEED TO TRANSFER FAXED TO [facility]
--- NOTE | 2018-12-18 16:27 | NUR ---
RECEIVED CALL FROM OSBALDO (CASE MANAGEMENT) [facility] [place] OUTSIDE UTILIZATION DEPARTMENT , REQUESTING AN UPDATE ON PATIENT.
--- NOTE | 2018-12-18 16:51 | NUR ---
RECEIVED CALL FROM SHE FROM [facility], INQUIRING IF PATIENT HAS BEEN DISCHARGED. THIS NURSE MADE HER AWARE THAT PATIENT WAS NOT DISCHARGED.
[2018-12-18 17:00] VITALS: BP 106/70
--- NOTE | 2018-12-18 19:30 | NUR ---
ENDORSED CARE TO GERALDINE RIVERA.
[2018-12-18] MEDS: traMADol HCL 50 MG TAB PO PRN (21:55)
[2018-12-18] MEDS: TEMAZEPAM 15 MG CAP PO PRN (21:56)
[2018-12-18 22:00] VITALS: BP 103/65
[2018-12-19 04:38] VITALS: BP 84/68
[2018-12-19] MEDS: SODIUM CHLOR 0.9% PF (SALINE LOCK) 10ML VIAL/SYR IV SCH ×3 (05:45→21:20)
--- NOTE | 2018-12-19 06:36 | NUR ---
SIGN OFF PATIENT RESTING IN BED W/NO SIGNS OF DISTRESS NOTED. BED IN LOWEST LOCKED POSITION W/CALL GRANT W/IN REACH. ENDORSING CARE TO DAY RN
--- NOTE | 2018-12-19 07:42 | NUR ---
Opening Shift Note Assumed care of patient, awake and alert. No S/S of distress/SOB or pain. Bed at lowest position and call light at reach. Instructed on POC and to call for assist PRN, will continue to monitor for changes Q1hr and PRN.
[2018-12-19 09:00] VITALS: BP 109/70
--- NOTE | 2018-12-19 09:51 | NUR ---
CALLED [facility], [facility] FOR THIS PT IS NOT AVAILABLE, I WILL CALL BACK LATER.
[2018-12-19] MEDS: SACUBITRIL-VALSARTAN 24mg/26mg TAB PO SCH ×2 (10:02→21:22)
[2018-12-19] MEDS: MAGNESIUM OXIDE 400 MG TAB PO SCH ×2 (10:02→21:24)
[2018-12-19] MEDS: ASPirin 81 mg TAB PO SCH (10:02)
[2018-12-19] MEDS: THIAMINE HCL 100 MG TAB PO SCH (10:03)
[2018-12-19] MEDS: PANTOPRAZOLE 40 MG TAB PO SCH (10:03)
[2018-12-19] MEDS: POTASSIUM CHL 20 Meq TABLET PO SCH (10:03)
[2018-12-19] MEDS: AMIODARONE HCL 200 MG TAB PO SCH ×2 (10:03→21:24)
[2018-12-19] MEDS: FUROSEMIDE 20 MG TAB PO SCH (10:04)
[2018-12-19] MEDS: CARVEDILOL 3.125 MG TAB PO SCH ×2 (10:04→21:24)
[2018-12-19] MEDS: NITROGLYCERIN 0.2MG/HR TOPICAL PATCH TD SCH (10:05)
[2018-12-19] MEDS: ENOXAPARIN SOD 40 MG/0.4 ML SYRINGE SC SCH ×2 (10:11→10:12)
[2018-12-19] MEDS: LORazepam 0.5 MG TAB PO PRN (10:40)
[2018-12-19 13:00] VITALS: BP 102/68
--- NOTE | 2018-12-19 13:52 | NUR ---
SPOKE TO RIDDHI BESS SUPERVISOR RIVETING AT [facility] AND SHE STATED [facility] HARTMAN IS WORKING ON GETTING PT TRANSFERRED TO DAY. P[facility]RO [facility] REP AWARE OF PENDING TRANSFER.
[2018-12-19 16:47] VITALS: BP 117/74
--- NOTE | 2018-12-19 18:36 | NUR ---
Dasia from [place] informed me taht patient has a bed in [facility]. Tele bed #322. Report to be given at . Dasia is requesting a copy of the following: copy of chart, transfer summary, and all diagnostics. Transport is estimated to arrive at 20:00.
--- NOTE | 2018-12-19 18:50 | NUR ---
Attempted to page , patient does not have a discharge/transfer order. Charge Nurse aware.
--- NOTE | 2018-12-19 19:15 | NUR ---
Patient is comfortably resting in bed. Patient on 2L NC. No s/s of distress/sob noted /stated. Bed at lowest position and call light within reach. Care endorsed to NOC RN.
--- NOTE | 2018-12-19 19:20 | NUR ---
SPOKE W/DR. GARZA INFORMED HIM THAT PATIENT'S BED IS NOW AVAILABLE AT [facility] AND WILL BE PICKED UP AT 2100. INFORMED HIM THAT WE NEED PROPER D/C ORDERS. WHAT WE HAVE IS A TRANSFER ORDER TO [facility] AND POWDER HAND SAYS THAT WE NEED AN ACTUAL DISCHARGE ORDER. HE SAID THAT HE WOULD DO IT. HE CONFIRMED THAT MEDS WILL BE THE SAME, ACTIVITY ORDERS ARE TOLERATED, AND THAT PATIENT WILL BE ON A CARDIAC DIET.
--- NOTE | 2018-12-19 20:05 | NUR ---
SBAR REPORT CALLED IN TO [facility] MONDRAGON RN.
--- NOTE | 2018-12-19 20:10 | NUR ---
DISCHARGE TRANSFER REPORT AND MED REC FAXED TO ALANNA CHANDLER AT [facility].
[2018-12-19] MEDS: traMADol HCL 50 MG TAB PO PRN (21:23)
[2018-12-19 22:00] VITALS: BP 114/77
--- NOTE | 2018-12-19 22:15 | NUR ---
[facility] CALLED AND SAID THAT TRANSPORT HAS BEEN DIVERTED TO EMERGENCY CALLS AND WILL NOW ARRIVE AROUND 12:15 AM. INFORMED PATIENT AND CHARGE.
[2018-12-19] MEDS: TEMAZEPAM 15 MG CAP PO PRN (23:55)
--- NOTE | 2018-12-20 00:30 | NUR ---
Discharge Transfers Patient is being transferred to [facility]. Accepting physician is Dr. Gardner and RN is Christie. Patient picked up by [facility] after SBAR report given to legal consultant. Patient ambulated to stretcher, placed on 2L nc for comfort.and was in no distress at time of departure. Tele box removed and returned to [facility] and PIV remained in place for transport.
== END 2018-12-20 00:30 | disposition short-term general hospital (02) | DRG 286 ==
LOC: ER 11:23 → TELE 14:39 → DOU IN ICU 12-14 21:59 → TELE-WESTW 12-17 14:38
PROVIDERS: ADMIT Internal Medicine; ATTEND Internal Medicine
PROC: 4A023N8 Measurement of Cardiac Sampling and Pressure, Bilateral, Percutaneous Approach (ICD-10-PCS; principal; 2018-12-16)
PROC: B2151ZZ Fluoroscopy of Left Heart using Low Osmolar Contrast (ICD-10-PCS; 2018-12-16)
PROC: B2111ZZ Fluoroscopy of Multiple Coronary Arteries using Low Osmolar Contrast (ICD-10-PCS; 2018-12-16)
DX: I13.0 Hypertensive heart and chronic kidney disease with heart failure and stage 1 through stage 4 chronic kidney disease, or unspecified chronic kidney disease (principal); I50.43 Acute on chronic combined systolic (congestive) and diastolic (congestive) heart failure; J18.9 Pneumonia, unspecified organism; I47.2 Ventricular tachycardia; N17.9 Acute kidney failure, unspecified; R17 Unspecified jaundice; I42.0 Dilated cardiomyopathy; I27.20 Pulmonary hypertension, unspecified; I34.0 Nonrheumatic mitral (valve) insufficiency; E78.5 Hyperlipidemia, unspecified; N18.2 Chronic kidney disease, stage 2 (mild); F17.210 Nicotine dependence, cigarettes, uncomplicated; I25.10 Atherosclerotic heart disease of native coronary artery without angina pectoris; Z82.49 Family history of ischemic heart disease and other diseases of the circulatory system
CPT/HCPCS: 36415; 36600; 71045; 71046; 71275; 76705; 76775; 80053; 80061; 80307; 81001; 82550; 82570; 82805; 83735; 83880; 84132; 84156; 84300; 84439; 84443; 84481; 84484; 85025; 85379; 85610; 85652; 85730; 86141; 86704; 86706; 86708; 86803; 87040; 87081; 87340; 87804; 93005; 93306; 96374; 96375; 96376; 99291; A6257; C1751; G0378; J0461; J1956; J2250